=== PATIENT | female | born 1950 | race Caucasian/White ===

== ENCOUNTER → 2016-12-03 | Outpatient (CLI) | payer OTHER ==
--- NOTE | 2016-12-03 13:36 | NM ---
Nuclear Medicine Whole Body Bone Scan Clinical History: 66-year-old female with a history of metastatic breast cancer. Assess response to t herapy. The patient has received both radiation therapy and chemotherapy. Radiopharmaceutical: 20.1 mCi of IV technetium 99m MDP. Technique: After the uncomplicated intravenous administration of the radiopharmaceutical, anterior an d posterior planar images of the axial and appendicular skeleton were obtained. Comparison Studies: Bone scan, dated September 05, 2016, and April 17, 2016. Findings: At the level of the calvarium, there was [id number]-[id number]-left-sided frontal convex-edged uptake, which is stable in distribution although perhaps slightly less intense. Additionally, previo usly seen scattered foci of increased activity in the right and left scapulae and rib cage have dimin ished in intensity. A dominant lesion seen along the right anterior mid rib cage persists, although i s slightly less intense There has also been slight interval decrease in the degree of uptake noted in the thoracic spine. There is some persistent abnormal uptake seen in the posterior upper pelvis and sacrum and involving the proximal femora, left greater than right. A subtle lesion seen in the distal right humeral diaphysis is less conspicuous. There is some degenerative-type uptake associated with the medial aspects of the knee, as well as in the mid and hindfeet. Bilateral renal activity and ni t urinary bladder activity are noted. There are no new foci of metastatic disease. Impression: The degree of osseous metastatic disease is less radiotracer intense, compared to 2015 (consistent with a partial response, and there is no new evidence of metastatic disease.
== END ==
LOC: FIMAGING 08:59
PROVIDERS: ATTEND Internal Medicine Hematology & Oncology
DX: C50.919 Malignant neoplasm of unspecified site of unspecified female breast (principal); C79.51 Secondary malignant neoplasm of bone
CPT/HCPCS: 78306; A9503

== ENCOUNTER → 2017-03-05 | Outpatient (CLI) | payer OTHER | LOC: FIMAGING 09:03 | PROVIDERS: ATTEND Nurse Practitioner | DX: Z85.3 Personal history of malignant neoplasm of breast (principal); C79.51 Secondary malignant neoplasm of bone | CPT/HCPCS: 78306; A9503 ==

== ENCOUNTER → 2017-07-03 | Outpatient (CLI) | payer OTHER | LOC: FIMAGING 08:51 | PROVIDERS: ATTEND Internal Medicine Hematology & Oncology | DX: C79.51 Secondary malignant neoplasm of bone (principal); C50.411 Malignant neoplasm of upper-outer quadrant of right female breast | CPT/HCPCS: 78306; A9503 ==

== ENCOUNTER → 2017-09-22 | Outpatient (CLI) | payer OTHER | LOC: FIMAGING 10:37 | PROVIDERS: ATTEND Internal Medicine Hematology & Oncology | DX: C50.411 Malignant neoplasm of upper-outer quadrant of right female breast (principal) | CPT/HCPCS: 78306; A9503 ==

== ENCOUNTER → 2017-12-30 | Outpatient (CLI) | payer OTHER | LOC: FIMAGING 09:24 | PROVIDERS: ATTEND Nurse Practitioner | DX: R93.7 Abnormal findings on diagnostic imaging of other parts of musculoskeletal system (principal); C50.919 Malignant neoplasm of unspecified site of unspecified female breast | CPT/HCPCS: 78306; A9503 ==

== ENCOUNTER → 2018-03-17 | Outpatient (CLI) | payer OTHER | LOC: FIMAGING 09:10 | PROVIDERS: ATTEND Internal Medicine Hematology & Oncology | DX: M89.9 Disorder of bone, unspecified (principal); C50.411 Malignant neoplasm of upper-outer quadrant of right female breast | CPT/HCPCS: 78306; A9503 ==

== ENCOUNTER → 2018-06-25 | Outpatient (CLI) | payer OTHER | LOC: FIMAGING 09:29 | PROVIDERS: ATTEND Nurse Practitioner | PROC: CP1Z1ZZ Planar Nuclear Medicine Imaging of Musculoskeletal System, All using Technetium 99m (Tc-99m) (ICD-10-PCS; principal; 2018-06-25) | DX: C50.411 Malignant neoplasm of upper-outer quadrant of right female breast (principal); C79.51 Secondary malignant neoplasm of bone | CPT/HCPCS: 78306; A9503 ==

== ENCOUNTER → 2018-09-03 | Outpatient (CLI) | payer OTHER | LOC: FIMAGING 08:46 | PROVIDERS: ATTEND Nurse Practitioner | DX: C50.411 Malignant neoplasm of upper-outer quadrant of right female breast (principal); C79.51 Secondary malignant neoplasm of bone | CPT/HCPCS: 78306; A9503 ==

== ENCOUNTER → 2018-11-18 | Outpatient (CLI) | payer OTHER ==
[~2018-11-18] MED LIST: GADOBUTROL 10 ML VIAL IVP ONE
== END ==
LOC: FIMAGING 07:58
PROVIDERS: ATTEND Internal Medicine Hematology & Oncology
DX: C50.411 Malignant neoplasm of upper-outer quadrant of right female breast (principal); C79.51 Secondary malignant neoplasm of bone; R93.0 Abnormal findings on diagnostic imaging of skull and head, not elsewhere classified
CPT/HCPCS: 70553; A9585; J1642

== ENCOUNTER 2019-03-04 15:10 | Inpatient (IN) | payer OTHER ==
[2019-03-04] MEDS ORDERED: NS 1,000 ML IV ONE (15:48)
--- NOTE | 2019-03-04 15:50 | EDPHY ---
H & P Time Seen by Provider: 03/04/19 15:37 HPI/ROS: CHIEF COMPLAINT: Weakness lightheaded HISTORY OF PRESENT ILLNESS: History of breast cancer and decreased energy since last August with decreased oral intake. Was at her oncologist Dr. Godfrey is office today for IV fluids because she has not been able to eat or drink, related that she was seeing flashing lights while standing yesterday and felt lightheaded dizzy like she was going to pass out had black stools for the past 5 days. No known previous ulcer, is on steroids for having whole brain radiation, no nonsteroidals. Weakness and lightheaded is pretty severe. Worse standing up. Not better or worse with anything. Not associated with chest pain or shortness of breath. REVIEW OF SYSTEMS: Eye: HPI ENT: no sore throat Cardiac: no chest pain or syncope Pulmonary: no cough or SOB Abdomen: Black stools but no vomiting or abdominal pain Musculoskeletal: no back pain Skin: no rash Neuro: no headache Constitutional: no fever : no urinary symptoms A comprehensive 10 point review of systems is otherwise negative aside from elements mentioned in the history of present illness. PAST MEDICAL HISTORY: Includes thyroid surgery, hysterectomy, breast cancer Social history: Here with daughter. General Appearance: Alert and conversant, cooperative. Eyes: No scleral icterus. ENT, Mouth: Slightly dry mucous membranes. Respiratory: Normal respiratory effort, breath sounds equal, lungs are clear to auscultation. Cardiovascular: Regular rate and rhythm. Gastrointestinal: Abdomen is soft and non tender. Rectal exam shows melena. Neurological: Alert, face symmetric, normal motor and sensory in extremities. Skin: Warm and dry, no rashes. Musculoskeletal: No peripheral edema. Psychiatric: Not agitated. Emergency Department course/MDM: Likely upper GI bleed. Plan for IV PPI, IV fluids with blood pressure 74 systolic, type and screen, admission for EGD. 1700: Blood pressure 84 up from 74 after fluids, hematocrit down to 27 from 30. 1710: Larry a to admit. 1730: additional IV fluids, recheck hematocrit. Discussed with Dr. Allison FRY, will consult. 175: Hematocrit 22 on 2nd draw, packed red blood cell transfusion ordered. Smoking Status: Never smoked Constitutional: Initial Vital Signs Temperature (C) 36.5 C 03/04/19 15:20 Heart Rate 98 05/02/19 15:20 Respiratory Rate 18 03/04/19 15:20 Blood Pressure 74/55 L 03/04/19 15:20 O2 Sat (%) 98 03/04/19 15:20 O2 Delivery Mode Room Air Allergies/Adverse Reactions: Penicillins Allergy (Verified 03/04/19 15:17) Home Medications: Medication Instructions Recorded Acetaminophen [Tylenol 325mg (*)] 650 mg PO BID PRN 03/13/16 Ondansetron Odt [Zofran Odt 4 mg 4 mg PO Q4 PRN #30 tab 03/21/16 (*)] Dexamethasone [Decadron 4 MG (*)] 4 mg PO BID 03/04/19 Famotidine [Pepcid 20 MG (*)] 20 mg PO DAILY 03/04/19 Nystatin 5 ml PO TID 03/04/19 Omeprazole 20 mg PO DAILY 03/04/19 Medical Decision Making - Diagnostics EKG Interpretation: 12-lead EKG interpreted by me; official reading is in computer system. My interpretation is sinus rhythm with lower extremity voltage rate 74 no ischemic changes. Differential Diagnosis: Differential for weakness considered including but not limited to metabolic abnormality, anemia, dehydration, PIANO MOVER problem. Critical Care Time: Critical care time spent by me, Dr. Clayton, exclusively with the care of this patient was 30 minutes, exclusive of PA or W[employer]DRO[employer] SPECIALIST time and exclusive of separate procedures. The organ system at risk was gastrointestinal, hematologic and I ordered multiple diagnostics, IV ppi, hospitalist admission and specialist consultation to stabilize the patient and prevent worsening of the patient's condition. - Data Points Laboratory Results: Laboratory Results 03/04/19 16:33 03/04/19 16:33 03/04/19 03/04/19 03/04/19 17:39 16:33 16:33 WBC RBC Hgb POC Hgb 7.5 gm/dL L gm/dL (12.6-16.3) Hct POC Hct 22 % L % (38-47) MCV MCH MCHC RDW Plt Count MPV Neut % (Auto) Lymph % (Auto) Valley % (Auto) Eos % (Auto) Baso % (Auto) Nucleat RBC Rel Count Absolute Neuts (auto) Absolute Lymphs (auto) Absolute Monos (auto) Absolute Eos (auto) Absolute Basos (auto) Absolute Nucleated RBC Immature Gran % Seg Neutrophils % Band Neutrophils % Lymphocytes % Monocytes % Eosinophils % Basophils % Metamyelocytes % Myelocytes % Promyelocytes % Blast Cells % Immature Gran # Absolute Seg Neuts Absolute Band Neuts Absolute Lymphocytes Absolute Monocytes Absolute Eosinophils Absolute Basophils Absolute Metamyelocyte Absolute Myelocytes Absolute Promyelocytes Absolute Plasma Cells Nucleated RBCs RBC/WBC/PLT Morphology Absolute Blast Cells Plasma Cells % Platelet Estimate PT INR APTT POC Sodium 136 mEq/L mEq/L (135-145) Sodium 128 mEq/L L mEq/L (135-145) POC Potassium 3.0 mEq/L L mEq/L (3.3-5.0) Potassium 3.2 mEq/L L mEq/L (3.5-5.2) POC Chloride 101 mEq/L mEq/L (97-110) Chloride 101 mEq/L mEq/L (97-110) Carbon Dioxide 24 mEq/l mEq/l (22-31) POC Total CO2 21 mEq/L L mEq/L (22-31) Anion Gap 3 mEq/L L mEq/L (6-14) POC BUN 8 mg/dL mg/dL (7-23) BUN 12 mg/dL mg/dL (7-23) Creatinine 0.4 mg/dL L mg/dL (0.6-1.0) POC Creatinine 0.4 mg/dL L mg/dL (0.6-1.0) Estimated GFR > 60 Glucose 81 mg/dL mg/dL (70-100) POC Glucose 79 mg/dL mg/dL (70-100) Calcium 6.9 mg/dL L mg/dL (8.5-10.4) Stool Occult Bld Scrn Patient ABO/Rh A POSITIVE Antibody Screen NEGATIVE Crossmatch IS Only See Detail 03/04/19 03/04/19 03/04/19 16:33 16:33 15:52 WBC 3.54 10^3/uL L 10^3/uL (3.80-9.50) RBC 2.98 10^6/uL L 10^6/uL (4.18-5.33) Hgb 9.1 g/dL L g/dL (12.6-16.3) POC Hgb Hct 27.5 % L % (38.0-47.0) POC Hct MCV 92.3 fL fL (81.5-99.8) MCH 30.5 pg pg (27.9-34.1) MCHC 33.1 g/dL g/dL (32.4-36.7) RDW 16.3 % H % (11.5-15.2) Plt Count 97 10^3/uL L 10^3/uL (150-400) MPV 9.7 fL fL (8.7-11.7) Neut % (Auto) Not Reported Lymph % (Auto) Not Reported Valley % (Auto) Not Reported Eos % (Auto) Not Reported Baso % (Auto) Not Reported Nucleat RBC Rel Count Not Reported Absolute Neuts (auto) Not Reported Absolute Lymphs (auto) Not Reported Absolute Monos (auto) Not Reported Absolute Eos (auto) Not Reported Absolute Basos (auto) Not Reported Absolute Nucleated RBC Not Reported Immature Gran % Not Reported Seg Neutrophils % 89.0 % % Band Neutrophils % 3.0 % % Lymphocytes % 5.0 % % Monocytes % 1.0 % % Eosinophils % 0.0 % % Basophils % 0.0 % % Metamyelocytes % 1.0 % % Myelocytes % 1.0 % % Promyelocytes % 0.0 % % Blast Cells % 0.0 % % Immature Gran # Not Reported Absolute Seg Neuts 3.15 10^3/uL 10^3/uL (1.70-6.50) Absolute Band Neuts 0.11 10^3/uL 10^3/uL (0.00-0.70) Absolute Lymphocytes 0.18 10^3/uL L 10^3/uL (1.00-3.00) Absolute Monocytes 0.04 10^3/uL L 10^3/uL (0.30-0.80) Absolute Eosinophils 0.00 10^3/uL L 10^3/uL (0.03-0.40) Absolute Basophils 0.00 10^3/uL L 10^3/uL (0.02-0.10) Absolute Metamyelocyte 0.04 10^3/mL H 10^3/mL (0.00-0.00) Absolute Myelocytes 0.04 10^3/mL H 10^3/mL (0.00-0.00) Absolute Promyelocytes 0.00 10^3/uL 10^3/uL (0.00-0.00) Absolute Plasma Cells 0.00 10^3/uL 10^3/uL (0.00-0.00) Nucleated RBCs 0 /100 WBC /100 WBC (0-0) RBC/WBC/PLT Morphology NORMAL (NORMAL) Absolute Blast Cells 0.00 10^3/uL 10^3/uL (0.00-0.00) Plasma Cells % 0.0 % % Platelet Estimate DECREASED L (ADEQ) PT 14.3 SEC SEC (12.0-15.0) INR 1.16 (0.83-1.16) APTT 29.8 SEC SEC (23.0-38.0) POC Sodium Sodium POC Potassium Potassium POC Chloride Chloride Carbon Dioxide POC Total CO2 Anion Gap POC BUN BUN Creatinine POC Creatinine Estimated GFR Glucose POC Glucose Calcium Stool Occult Bld Scrn POSITIVE H (NEGATIVE) Patient ABO/Rh Antibody Screen Crossmatch IS Only Medications Given: Discontinued Medications Sodium Chloride (Ns) 1,000 mls @ 0 mls/hr IV EDNOW ONE; Wide Open PRN Reason: Protocol Stop: 03/04/19 15:49 Last Admin: 03/04/19 17:15 Dose: 1,000 mls Pantoprazole Sodium (Protonix) 80 mg IVP EDNOW ONE Stop: 03/04/19 16:01 Last Admin: 03/04/19 17:15 Dose: 80 mg Point of Care Test Results: Chemistry 03/04/19 17:39 POC Sodium 136 mEq/L mEq/L (135-145) POC Potassium 3.0 mEq/L L mEq/L (3.3-5.0) POC Chloride 101 mEq/L mEq/L (97-110) POC Total CO2 21 mEq/L L mEq/L (22-31) POC BUN 8 mg/dL mg/dL (7-23) POC Creatinine 0.4 mg/dL L mg/dL (0.6-1.0) POC Glucose 79 mg/dL mg/dL (70-100) ISTAT H&H 03/04/19 17:39 POC Hgb 7.5 gm/dL L gm/dL (12.6-16.3) POC Hct 22 % L % (38-47) Departure - Departure Disposition: [facility] Inpatient Acute Clinical Impression: Upper GI bleeding Condition: Serious Referrals: GRISELDA SORENSEN [Other] - As per Instructions
[2019-03-04] MEDS ORDERED: PANTOPRAZOLE SODIUM 40 MG VIAL IVP ONE (16:00)
[2019-03-04] MEDS ORDERED: LIDOCAINE/PRILOCAINE 1 EACH CRTUBE TP ONE (16:00)
--- NOTE | 2019-03-04 16:52 | CPEKG ---
Test Reason : OPEN Blood Pressure : / mmHG Vent. Rate : 074 BPM Atrial Rate : 074 BPM P-R Int : 168 ms QRS Dur : 088 ms QT Int : 419 ms P-R-T Axes : 058 004 058 degrees QTc Int : 465 ms Sinus rhythm Low voltage, extremity leads Confirmed by Lam Clayton ([id number]) on 03/04/2019 4:51:20 PM Referred By: Lam Clayton Confirmed By:Lam Clayton
[2019-03-04 17:01] LABS: PLATELET COUNT 97 10^3/uL (150-400)
[2019-03-04] MEDS ORDERED: PANTOPRAZOLE SODIUM 40 MG VIAL ONE (17:09)
[2019-03-04 17:24] LABS: INR 1.16 (0.83-1.16); PROTIME(PATIENT) 14.3 SEC (12.0-15.0)
[2019-03-04] MEDS ORDERED: ACETAMINOPHEN 325 MG TAB PO PRN (18:17)
[2019-03-04] MEDS ORDERED: ONDANSETRON DISINTEGRATING 4 MG TAB PO PRN (18:19)
[2019-03-04] MEDS ORDERED: ONDANSETRON 4 MG/2 ML VIAL IVP PRN (18:19)
--- NOTE | 2019-03-04 18:29 | PDCONSULT ---
Polygraph Operator Note: CHIEF COMPLAINT: Weakness lightheaded HISTORY OF PRESENT ILLNESS: 68 yo female with metastatic breast cancer p/w symptomatic anemia. The pt was sent from the Oncology office for anemia w/u and mgmt. She was at her oncologist Dr. Godfrey is office today for IV fluids because she has not been able to eat or drink. She has had melena for 5 ays. She feels weak. BP in the ER initially was in the systolic 50's. She is not tachycardic. In the ER BP has responded slightly and is now in the 80's systolic. She reports that her BP has been running in the 80s systolic for several weeks. She is not on platelet inhibitor, NSAID, or other AC. She has been on steroids for several weeks for whole brain radiation She has no hx of GIB In the ER she is being transfused 1 unit GI has been consulted She denies cp, sob, n/v, or other. PAST MEDICAL HISTORY: Includes thyroid surgery, hysterectomy, breast cancer Social history: Here with daughter. non smoker, no ETOH FmHx: non contributory Exam: vs: hypotension NAD MM DRY PEERL, EOMI RRR, NO EDEMA CTA B, NORMAL WORK OF BREATHING S/NT/ND SKIN WARM NOT ANXIOUS AAOX3 HOME MEDS: REVIEWED Labs: reviewed A/P #UGIB #ABLA #Hypotension #Metastatic Breast cancer, on chemotherapy, mets to brain #Chronic Steroid use: unclear duration, at least several weeks #Decreased PO #FTT Plan: The pt has symptomatic hypotension. She is not tachy. Suspect acute on chronic hypotension. Etiology is multifactorial but current drop is likely due to ABLA from UGIB Discussed with ER, transfusing 1 unit now. She may need additional pending respons She has already received 2 L of NS in the ER. Keep NPO. Will cont Fluids I have not stopped her steroids as I suspect some component of adrenal insufficiency. I have not increased her dose either PPI GI to see, consulted by the ER total critical care time is 65 minutes
[2019-03-04] MEDS ORDERED: NS 1,000 ML IV SCH (18:30)
[2019-03-04] MEDS: NYSTATIN SUSP 500000 UNIT/5 ML UD LIQ PO SCH (21:46)
[2019-03-04] MEDS: DEXAMETHASONE 4 MG TAB PO SCH (21:46)
[2019-03-04] MEDS: NS W/ 20 KCl/L 1,000 ML IV SCH (21:51)
[2019-03-04] MEDS: PANTOPRAZOLE SODIUM 40 MG VIAL IVP SCH (23:04)
[2019-03-05 06:07] LABS: PLATELET COUNT 83 10^3/uL (150-400)
[2019-03-05] MEDS: PANTOPRAZOLE SODIUM 40 MG VIAL IVP SCH ×4 (06:28→22:22)
--- NOTE | 2019-03-05 08:16 | HOSPPROG ---
Hospitalist Progress Note Assessment/Plan: DIAGNOSES: # UGIB -hemoglobin stable, blood pressure back to her recent baseline # ABLA # Hypotension due to GI bleed (baseline systolic mid 80s for the last 8 months, was previously higher) # Early Satiety/constipation with profound weight loss and severe protein calorie malnutrition -describes greater than 100 lb weight loss in 2 years # thrombocytopenia, suspect due to cancer treatment # Metastatic Breast cancer -known brain Mets; recent PET scan "looked good" -on Taxol # Chronic Steroid use: unclear duration, at least several weeks -his receiving stress dose steroid at this time # FTT PLANS: * await gastroenterology consultation * EGD and colonoscopy indicated (currently NPO for that) * Will attempt to get formal results of her recent PET scan and other imaging * Proton pump inhibitor * No anticoagulants at this time with her bleeding; TEDs and SCDs * Nutrition supplementation * Will check iron levels and flow give iron supplementation Seen by me on hospitalist rounds as well as multidisciplinary rounds Will review with Gastroenterology as they arrive today Reviewed with Dr. Milian SUBJECTIVE: Feels weak and tired Denies pain or nausea Describes 8 months of severe early satiety and bloating, constipation Also describes greater than 100 lb weight loss OBJECTIVE Vitals reviewed: Stable vital signs at present (her current blood pressures are her baseline since last August) Test Architect, my review: Sinus Exam: alert oriented skin warm dry color ok resps not labored lungs clear BSs heart regular abd soft nondistended nontender, bowel sounds present limbs warm, no edema iv site ok Lab data: Hemoglobin stable 9.7 Platelets still slightly low but stable ANC 2400 Bilirubin and alk-phos stable, normal AST ALT Sodium stable, good renal function though suspect her low creatinine reflects malnutrition Objective: Vital Signs Temp Pulse Resp BP Pulse Ox 36.9 C 76 16 88/63 L 98 03/05/19 07:54 03/05/19 07:54 03/05/19 07:54 03/05/19 07:54 03/05/19 07:54 Laboratory Results 03/05/19 06:01 03/05/19 06:01 03/04/19 03/05/19 03/06/19 06:59 06:59 06:59 Intake Total 2689 Balance 2689 PT 14.3 SEC (12.0-15.0) 03/04/19 16:33 INR 1.16 (0.83-1.16) 03/04/19 16:33 - Time Spent With Patient Time Spent with Patient: greater than 35 minutes Time Spent with Patient: Greater than 35 minutes spent on this patients care, greater than 50% of time spent counseling, educating, and coordinating care regarding the above mentioned plan. ICD10 Worksheet Patient Problems: Problems Problem Status Onset Upper GI bleeding Acute Breast cancer Acute
[2019-03-05] MEDS: HYDROCORTISONE 100 MG/2 ML VIAL IVP SCH ×2 (08:45→16:06)
[2019-03-05] MEDS: NYSTATIN SUSP 500000 UNIT/5 ML UD LIQ PO SCH ×3 (08:45→22:22)
[2019-03-05] MEDS: NS W/ 20 KCl/L 1,000 ML IV SCH ×2 (08:46→22:31)
[2019-03-05] MEDS: FAMOTIDINE 20 MG TAB PO SCH (09:02)
--- NOTE | 2019-03-05 13:06 | PDMN ---
Medical Necessity Medical necessity: MCG: M180 GIB,upper A-2 days; Admission is indicated for 1 or more of the following: -Significant active comorbid disease. High- risk low platelet count ( 97,83). 68yoF with met. Br. Ca on Chemo with mets to brain, - sent by oncologist for symptomatic anemia, pt unable to eat/drink , Melena X 5 days, hypotensive, transfused 1 unit in ED, GI consult pend. anticipate > 2 MN ongoing med nec care- further monitoring, eval and tx of ABLA , UGIB, hypotension,
--- NOTE | 2019-03-05 13:09 | PDANEPAE ---
ANE History of Present Illness black/tarry stool here for EGD ANE Past Medical History - Cardiovascular History Hx Hypertension: No Hx Arrhythmias: No Hx Chest Pain: No Hx Coronary Artery / Peripheral Vascular Disease: No Hx CHF / Valvular Disease: No Hx Palpitations: No - Pulmonary History Hx COPD: No Hx Asthma/Reactive Airway Disease: No Hx Recent Upper Respiratory Infection: No Hx Oxygen in Use at Home: No Hx Sleep Apnea: No Sleep Apnea Screening Result - Last Documented: Negative - Neurologic History Hx Cerebrovascular Accident: No Hx Seizures: No Hx Dementia: No - Endocrine History Hx Diabetes: No Endocrine History Comment: PARTIAL THYROIDECTOMY - Renal History Hx Renal Disorders: No - Liver History Hx Hepatic Disorders: No - Neurological & Psychiatric Hx Hx Neurological and Psychiatric Disorders: No - Cancer History Hx Cancer: Yes Cancer History Comment: BREAST CANCER - Congenital Disorder History Hx Congenital Disorders: No - GI History Hx Gastrointestinal Disorders: Yes Gastrointestinal History Comment: CONSTIPATION - Other Health History Other Health History: NONE - Chronic Pain History Chronic Pain: Yes (RIGHT KNEE PAIN, BAD BACK) - Surgical History Prior Surgeries: BREAST BIOPSIES. TONSILLECTOMY. THYROIDECTOMY ON LEFT SIDE. GANGLION CYST REMOVED FROM LEFT HAND. TUBAL LIGATION. HYSTERECTOMY ANE Review of Systems Review of Systems: - Exercise capacity Exercise capacity: <4 METS ANE Patient History - Allergies Allergies/Adverse Reactions: Penicillins Allergy (Verified 03/04/19 15:17) - Home Medications Home Medications: Acetaminophen [Tylenol 325mg (*)] 650 mg PO BID PRN 03/13/16 [Last Taken 08:00] Dexamethasone [Decadron 4 MG (*)] 4 mg PO BID 03/04/19 [Last Taken Unknown] Famotidine [Pepcid 20 MG (*)] 20 mg PO DAILY 03/04/19 [Last Taken Unknown] Nystatin 5 ml PO TID 03/04/19 [Last Taken Unknown] Omeprazole 20 mg PO DAILY 03/04/19 [Last Taken Unknown] - NPO status NPO Status: no food or drink >8 hours NPO Since - Liquids (Date): 03/05/19 NPO Since - Liquids (Time): 08:00 NPO Since - Solids (Date): 03/03/19 NPO Since - Solids (Time): 12:00 - Anes Hx Anes Hx: no prior problems - Smoking Hx Smoking Status: Never smoked - Alcohol Use Alcohol Use: None - Family Anes Hx Family Hx Anesthesia Complications: AUNT STOPPED BREATHING WITH ANESTHESIA ANE Labs/Vital Signs - Labs Result Diagrams: 03/05/19 06:01 03/05/19 06:01 - Vital Signs Blood Pressure: 83/59 Heart Rate: 67 Respiratory Rate: 12 O2 Sat (%): 96 Height: 167.64 cm Weight: 62.142 kg ANE Physical Exam - Airway Neck exam: FROM Mallampati Score: Class 2 Mouth exam: poor dentition Mouth image: 1 - missing 2 - missing - Pulmonary Pulmonary: no respiratory distress, clear to auscultation - Cardiovascular Cardiovascular: regular rate and rhythym, no murmur, rub, or gallop - ASA Status ASA Status: III ANE Anesthesia Plan Anesthesia Plan: GA with mask Total IV Anesthesia: Yes
[2019-03-05] MEDS ORDERED: NALOXONE HCL 0.4 MG/ML INJ IVP PRN (13:41)
--- NOTE | 2019-03-05 13:45 | POSTANESTH ---
Post Anesthetic Evaluation Cardiovascular Status: Normal, Stable, Similar to Pre-Op Cond Respiratory Status: Normal, Stable, Similar to Pre-op Cond. Level of Consciousness/Mental Status: Mildly Sleepy, Arousable Pain Control: Adequate, Prn Tx Ordered Nausea/Vomiting Control: Adequate, Prn Tx Ordered Complications Possibly Related to Anesthesia: None Noted
--- NOTE | 2019-03-05 14:14 | GCON ---
[f rep st] CONSULTATION DATE OF CONSULTATION: 03/05/2019 REFERRING PHYSICIAN: Maicol Juarez MD REASON FOR CONSULTATION: Melena. CHIEF COMPLAINT: Weakness. HISTORY OF PRESENT ILLNESS: The patient is a 68-year-old female with a history of metastatic breast cancer who presents to [facility] with complaints of feeling weak, lightheaded, as well as melenic stools. The patient states for the last 6 days she has had black and tarry stools. She has not had a bowel movement each day. She felt very weak as well as lightheaded. Due to her complaints, she went to Oncology and found to be anemic and came to the hospital for further evaluation. In the emergency room, her systolic pressure which in the 50s. She has had a queasy stomach with early satiety and nausea. She states that she eats only a few bites and she does feel very full. She also has complaints of nausea. She has had crampy abdominal pain throughout her whole belly, which is worsened by oral intake. She denies any alleviating factors. She has been having radiation treatment for metastatic lesions in her brain. She denies NSAID use. She has never had a prior EGD or colonoscopy. I am being asked by Dr. Juarez to evaluate the patient in consultation regarding her melenic stools. PAST MEDICAL HISTORY: Metastatic breast cancer. PAST SURGICAL HISTORY: 1. Thyroid surgery. 2. Hysterectomy. 3. Tonsillectomy. ALLERGIES: Penicillin. MEDICATIONS: Dexamethasone, docusate, duloxetine, famotidine, lidocaine, omeprazole, Zometa. FAMILY HISTORY: Lung cancer, breast cancer. SOCIAL HISTORY: Former smoker. No significant alcohol use. REVIEW OF SYSTEMS: A 14 point comprehensive review of systems was asked. Pertinent positives and negatives per HPI. PHYSICAL EXAM: VITALS: Temperature 98.2, blood pressure 122/72, pulse 73, respirations 16. GENERAL: Alert and oriented x3, in no distress. HEENT: Moist mucosa. NECK: No JVD. CARDIOVASCULAR: Regular rate and rhythm. Positive S1, S2. No gallops appreciated. LUNGS: Clear to auscultation bilaterally. No wheezes, rales or rhonchi. ABDOMEN: Soft, nontender, nondistended. Positive bowel sounds. No guarding or rebound. EXTREMITIES: No edema. NEUROLOGIC: Cranial nerves 2 through 12 grossly intact. PSYCH: Normal affect. ASSESSMENT AND PLAN: 1. Melenic stools- with post hemorrhagic anemia. Recommend to proceed with upper endoscopy. The risks, benefits, and alternatives of the procedure were explained in detail to the patient. The risk of infection, bleeding, perforation, and sedation were discussed. All questions were answered. Informed consent was obtained. 2. History of metastatic breast cancer. /[id number]/MODL MTDD
--- NOTE | 2019-03-05 14:32 | ASMTCMCOM ---
CM Note CM Note Notes: CM met with daughter. Pt was away out of room for testing. Daughter reports that pt lives with her at home. is out of town care taking for his blind/deaf uncle. Therapy's recommend HHC. CM will follow up when pt is back in room to provide options for HHC. Plan: [facility] Date Signed: 03/05/2019 02:31 PM Electronically Signed By:Priyanka Snyder
--- NOTE | 2019-03-05 14:34 | GCON ---
[f rep st] CONSULTATION CRITICAL-CARE CONSULTATION DATE OF CONSULTATION: 03/05/2019 HISTORY OF PRESENT ILLNESS: The patient is a 68-year-old female with a history of metastatic breast cancer who was admitted yesterday with near syncope, ongoing severe weight loss, and poor oral intake , but more significantly melena for the past 5 days. She was sent to the [facility] department [facility], was found have a blood pressure 74/55 with hematocrit of 27, down from 37 not that lo ng ago. In any case, she was thought to be having GI bleeding. She was given IV fluids, 1 unit of b lood, admitted to the step-down unit for ongoing observation. She denied any nausea, vomiting, hemat emesis, or bright red blood. She was placed on dexamethasone on 01/25/2019, for symptomatic nausea a t that time, as well as Zofran. She has not had any peptic ulcer disease in the past. She was previ ously treated with Pepcid and given a prescription for omeprazole, but only recently just filled that . In terms of her breast cancer, she was diagnosed in 2015, underwent bilateral modified radical mastec tomies, has been treated with Taxol ever since. 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 She may have had a recent PET-CT that was showing no evidence of disease, but alvaro t is unclear to me at this time. PAST MEDICAL HISTORY: Includes: 1. The breast cancer as described. 2. Chronic steroids. 3. Depression. PAST SURGICAL HISTORY: None. SOCIAL HISTORY: She is a nonsmoker. FAMILY HISTORY: Noncontributory. MEDICATIONS: At this time, include Tylenol, Decadron, Pepcid, Narcan, nystatin, Zofran, Protonix, no rmal saline. PHYSICAL EXAM: VITAL SIGNS: At time of my evaluation, she had a blood pressure of 88/63, heart rate 76, respiratory rate 16, oxygen saturation 98% on room air. GENERAL: She was a pleasant woman who appeared to be older than her stated age, but was in no apparent distress, and able to speak in full sentences without using accessory muscles for breathing. HEENT: Pupils are equally round and reacti ve to light nonicteric and noninjected. Mucous membranes moist without erythema or exudate. NECK: Supple without adenopathy or jugular vein distention. LUNGS: Breath sounds were clear to auscultati on bilaterally without wheeze or rales. HEART: Regular rate and rhythm without murmurs, rubs, winters ps. ABDOMEN: Soft, nontender, nondistended without hepatosplenomegaly. EXTREMITIES: Show no clubbi ng, cyanosis, or edema. NEUROLOGIC: Nonfocal, including cranial nerves, deep tendon reflexes. SKIN : Warm and dry without evidence of rash. OBJECTIVE DATA: Includes a white count on admission of 3.5, hemoglobin 7.5, hematocrit 27, platelets of 97. INR is 1.16. Sodium is 128, potassium 3.2, chloride 101, bicarb 24, anion gap 3, BUN 12, cr eatinine 0.4, calcium 6.9. Transaminases were normal, alkaline phosphatase 168, total bilirubin 1.9, albumin only 2.2. ASSESSMENT/PLAN: 1. Possible gastrointestinal bleed given her history and recent steroid dosing. She is going to get an EGD later this morning and remains n.p.o. for this. There is no signs of active bleeding at this time, but she has a proton pump inhibitor in place, as well as serial hemoglobin and hematocrit. 2. Hypotension. This easily could be due to possible gastrointestinal bleed, but also could be from a relative adrenal insufficiency given her stress. She is on dexamethasone. We changed her to a hy drocortisone and will monitor her blood pressure appropriately. I do not see any evidence of sepsis, acute coronary syndromes at this time. 3. Pancytopenia. It is unclear to me when her last Taxol dose was and that could all be related to that given her drop in white count as well as platelets. There is no active bleeding right now, so I do not feel that transfusion of platelets is indicated. If in fact this is a Taxol related problem, it should recover without any intervention. We will watch closely. 4. Elevated alkaline phosphatase. This is likely related to her known widespread bony metastatic di sease. /[id number]/MODL
--- NOTE | 2019-03-05 14:43 | GIREPORT ---
[facility] Surgical Services - Endoscopy Department Patient Name: Ruth De Luna Procedure Date: 03/05/2019 12:48 PM Patient Type: Inpatient Attending MD/ ER Physician: Ryan Cooper MD Procedure: Upper GI endoscopy Indications: Epigastric abdominal pain, Melena Patient Profile: 68 year old with a history of metastatic breast cancer presents for evaluation of melena/post hemorrhagic anemia/epigastric abdominal pain. Providers: Ryan Cooper MD Medicines: Monitored Anesthesia Care Complications: No immediate complications. Estimated blood loss: Minimal. Description of Procedure: After obtaining informed consent, the endoscope was passed under direct vision. Throughout the procedure, the patient's blood pressure, pulse, and oxygen saturations were monitored continuously. The Endoscope was intro duced through the mouth, and advanced to the second part of duodenum. The [facility] er GI endoscopy was accomplished with ease. The patient tolerated the procedu re well. Findings: The examined esophagus was normal. Three cratered gastric ulcers were found in the gastric body with signf icant nodularity. The largest lesion was 20 mm in largest dimension. Biopsies were taken at the edges of the ulcer base and throughout the stomach. Patchy mildly erythematous mucosa was found in the entire examined stom ach. The examined duodenum was normal. Estimated Blood Loss: Estimated blood loss was minimal. Post Op Diagnosis: - Normal esophagus. - Gastric ulcers. - Erythematous mucosa in the stomach. - Normal examined duodenum. - No specimens collected. - Etiology? Multiple gastric ulcers. She is adamant that she is taking no NSAIDs. Malignant ulcers versus other? No active bleeding or stigmata o f bleed noted. Await biopsy results. Recommend PPI BID and no NSAIDs. Ok to restart diet. Low chance of rebleed. GI will sign off. Thank you for th e consultation! Recommendation: - Return patient to [facility] for ongoing care. - Clear liquid diet. - Await pathology results. - No aspirin, ibuprofen, naproxen, or other non-steroidal anti-inflamma tory drugs. - Use a proton pump inhibitor PO BID. - GI will sign off. -Thank you for allowing us to participate in the care of your patient! Attending Participation: I personally performed the entire procedure. Ryan Cooper MD Ryan Cooper MD 03/05/2019 2:42:15 PM This report has been signed electronicallyRyan Cooper MD Number of Addenda: 0 Note Initiated On: 03/05/2019 12:48 PM [email or web address]
[2019-03-06] MEDS: HYDROCORTISONE 100 MG/2 ML VIAL IVP SCH ×4 (03:14→22:21)
[2019-03-06] MEDS: PANTOPRAZOLE SODIUM 40 MG VIAL IVP SCH ×4 (06:15→22:21)
--- NOTE | 2019-03-06 10:03 | HOSPPROG ---
Hospitalist Progress Note Assessment/Plan: DIAGNOSES: # UGIB -hemoglobin stable, blood pressure back to her recent baseline # ABLA # Hypotension due to GI bleed (baseline systolic mid 80s for the last 8 months, was previously higher) # Early Satiety/constipation with profound weight loss and severe protein calorie malnutrition -describes greater than 100 lb weight loss in 2 years # thrombocytopenia, suspect due to cancer treatment # Metastatic Breast cancer -known brain Mets; recent PET scan "looked good" -on Taxol # Chronic Steroid use: unclear duration, at least several weeks -is receiving stress dose steroid at this time # Gait instability FTT, high fall risk PLANS: * Continue PPI * Attempt regular diet * Hydrocortisone decreased to 50 mg three times daily and then will switch back to usual steroid tomorrow * Await biopsy results * No anticoagulants at this time with her bleeding; TEDs and SCDs * Nutrition supplementation * Will check iron levels and flow give iron supplementation * Continue fall risk precautions, PT and OT * Recheck blood count in a.m. Reviewed with Dr. Milian and Dr. Cooper SUBJECTIVE: Feels weak and tired Did walk with physical therapist, feels unsteady and weak on feet but he was able to walk with some assistance No nausea vomiting or abdominal pain Tolerating clear liquids well Stools now much less melanic in appearance this morning OBJECTIVE Vitals reviewed: Some improvement in blood pressure otherwise stable vital signs no fever Residential [employer], my review: Sinus Exam: alert oriented, looks weak and tired skin warm dry color ok resps not labored lungs clear BSs heart regular abd soft nondistended nontender, bowel sounds present limbs warm, no edema iv site ok Lab data: Iron studies pending Objective: Vital Signs Temp Pulse Resp BP Pulse Ox 36.3 C 66 13 92/62 L 94 03/06/19 08:00 03/06/19 08:00 03/06/19 08:00 03/06/19 08:00 03/06/19 08:00 Laboratory Results 03/05/19 06:01 03/05/19 06:01 03/05/19 03/06/19 03/07/19 06:59 06:59 06:59 Intake Total 2689 2586 Output Total 0 Balance 2689 2586 PT 14.3 SEC (12.0-15.0) 03/04/19 16:33 INR 1.16 (0.83-1.16) 03/04/19 16:33 - Time Spent With Patient Time Spent with Patient: greater than 35 minutes Time Spent with Patient: Greater than 35 minutes spent on this patients care, greater than 50% of time spent counseling, educating, and coordinating care regarding the above mentioned plan. ICD10 Worksheet Patient Problems: Problems Problem Status Onset Upper GI bleeding Acute Breast cancer Acute
[2019-03-06] MEDS: DEXAMETHASONE 4 MG TAB PO SCH ×2 (12:02→21:05)
[2019-03-06] MEDS: NYSTATIN SUSP 500000 UNIT/5 ML UD LIQ PO SCH ×3 (12:02→22:21)
[2019-03-06] MEDS: FAMOTIDINE 20 MG TAB PO SCH (12:02)
--- NOTE | 2019-03-06 12:44 | SOAPPROG ---
SOAP Progress Note Assessment/Plan: Assessment: Plan: 03/06/19 12:39 A/P 1. GI bleed- upper. + melena. EGD with large gastric ulcers. Biopsies taken. Unsure if malignant? Await biopsy results. Low chance of rebleed since clean based ulcers. Recommend PPI BID and ok to advance diet. No NSAIDs. Will follow up on biopsy results. Outpatient f/u in 2-3 weeks. GI will sign off. Please call if needed. Subjective: cc: Follow up GI bleed Had a black BM this am. No c/o of abdominal pain. Objective: Vital Signs Temp Pulse Resp BP Pulse Ox 36.3 C 66 13 92/62 L 94 03/06/19 08:00 03/06/19 08:00 03/06/19 08:00 03/06/19 08:00 03/06/19 08:00 Laboratory Results 03/05/19 06:01 03/05/19 06:01 03/05/19 03/06/19 03/07/19 05:59 05:59 05:59 Intake Total 2689 2586 Output Total 0 Balance 2689 2586 PT 14.3 SEC (12.0-15.0) 03/04/19 16:33 INR 1.16 (0.83-1.16) 03/04/19 16:33 Physical Exam - Physical Exam General Appearance: alert, no apparent distress EENT: No scleral icterus (R), No scleral icterus (L) Respiratory: chest non-tender, lungs clear, normal breath sounds, No decreased breath sounds Cardiac/Chest: regular rate, rhythm, No diastolic murmur, No systolic murmur Abdomen: normal bowel sounds, non-tender, soft, No distended, No guarding Skin: normal color, warm/dry ICD10 Worksheet Patient Problems: Problems Problem Status Onset Upper GI bleeding Acute Breast cancer Acute
--- NOTE | 2019-03-06 12:47 | GCON ---
[f rep st] CONSULTATION Ruth De Luna is a 68-year-old woman with a history of metastatic triple negative breast cancer. She is well known to me from my clinic. She presented in March of 2016 with invasive ductal carcinoma of the right breast. She underwent bilateral mastectomy and sentinel lymph node dissection. She was later found to have extensive blastic lesions throughout the skeleton without evidence of visceral disease. In June 2016, she was started on weekly Taxol with a good result. She continued this therapy up until June 2018 when it was discontinued due to concerns about progressive neuropathy. Several months ago, she began to complain of nausea, vomiting and weight loss. 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 She did not have any other neurological findings aside from the nausea. She received a course of palliative whole-brain radiotherapy which was completed at the end of January. PET-CT scan showed no evidence of progression. She was restarted on her Taxol. She unfortunately continued to have significant GI symptoms. She was placed on dexamethasone 4 mg twice daily as well as numerous antiemetics. On the day of admission, she called our clinic complaining of dizziness as well as melena. We sent her to the emergency department. She was found to have a hemoglobin of 7.5, which was lower than baseline. She received 1 unit of red cells. She had an upper endoscopy performed yesterday by Dr. Cooper. This revealed gastric ulcers with an erythematous mucosa in the stomach. The esophagus and duodenum were normal. Biopsies were performed and the results are pending. She says she is feeling significantly better. PAST MEDICAL HISTORY: 1. 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 CURRENT MEDICATIONS: Include dexamethasone 4 mg p.o. twice daily, Pepcid, Protonix IV. ALLERGIES: Penicillins. FAMILY HISTORY: Noncontributory. SOCIAL HISTORY: She lives with her daughter. REVIEW OF SYSTEMS: Aside from pertinent positives in HPI, a 14-point review of systems is negative. EXAMINATION: VITAL SIGNS: Her temperature was 36.3, blood pressure 92/62, heart rate 66, oxygen saturation 94% on room air. GENERAL: She is chronically ill appearing, though in no acute distress. EENT: Sclerae anicteric. Oropharynx clear. NECK: Supple without lymphadenopathy. LUNGS: Clear to auscultation bilaterally. CARDIAC: Regular rate and rhythm. No murmurs, gallops, rubs. ABDOMEN: Normoactive bowel sounds. Nontender. EXTREMITIES: No edema. 2+ pulses. NEUROLOGIC: Alert and oriented x3. LABORATORY DATA: White count 2.62, hemoglobin 9.1, platelets of 83. Sodium 134 , potassium 3.6, chloride 105, bicarb 22, BUN of 8, creatinine 0.4, total bilirubin 1.8, alkaline phosphatase 163, albumin 2.2. IMPRESSION: This is a 68-year-old woman with triple negative breast cancer metastatic to bone. She was recently treated for leptomeningeal disease noted on MRI. She presented with melena and some anemia, though this appears to have stabilized. Endoscopy revealed multiple gastric ulcers. Biopsies are pending. The etiology of these ulcers is not clear and I am very curious to see the biopsy results. Certainly, she could have metastatic deposits from the breast cancer, which would of course explain her persistent GI symptoms and weight loss over the past several months. It is also possibly due to a non bleeding cause, as that would be a fairly unusual location for metastatic breast cancer. There is no evidence of systemic progression on her other imaging. RECOMMENDATIONS: 1. Continue H2 blockers and proton pump inhibitor. 2. Avoid all NSAIDs. 3. Follow hemoglobin. If her iron stores are low, she may benefit from intravenous iron. 4. We will follow up on the results of the biopsy. 5. Her next chemotherapy is due on March 16. If the biopsy shows evidence of cancer in the stomach, we may need to consider changing her therapy. Thank you for this consultation. I will continue to follow Mrs. De Luna with you closely while she is in the hospital. /[id number]/MODL MTDD
--- NOTE | 2019-03-06 17:05 | PDINTPN ---
[employer] Floorperson Progress Note Assessment/Plan: 68 F with history of breast cancer admitted 03/05 with near syncope and melena. She had been started on zofran and dexamethasone 01/25/19 for refractory nausea and weight loss, but no NSAID. Her breast ca was treated with remote mastectomy and Taxol, but she developed leptomeningeal disease in 12/2018 and required XRT. Her BP on admission was 70/x and her hct dropped from 37 to 27. She was transfused and recovered well. * GIB- EGD revealed clean based ulcers of uncertain etiology and biopsies are pending. Diet advanced, remains on PPI * hypotension 2/ GIB- resolved. She was given hydrocortisone as well in case of relative adrenal insufficiency (on dex)with equivocal effect so would taper this rapidly. * OK for floor Subjective: stable overnight. Denies pain, N/V Objective: Vital Signs Temp Pulse Resp BP Pulse Ox 36.4 C 70 18 92/63 L 98 03/06/19 15:13 03/06/19 15:13 03/06/19 15:13 03/06/19 15:13 03/06/19 15:13 Laboratory Results 03/05/19 06:01 03/05/19 06:01 03/05/19 03/06/19 03/07/19 05:59 05:59 05:59 Intake Total 2689 2586 350 Output Total 0 Balance 2689 2586 350 PT 14.3 SEC (12.0-15.0) 03/04/19 16:33 INR 1.16 (0.83-1.16) 03/04/19 16:33 Physical Exam - Physical Exam General Appearance: alert, no apparent distress, thin EENT: PERRL/EOMI Neck: supple Respiratory: lungs clear, normal breath sounds, No respiratory distress, No accessory muscle use Cardiac/Chest: regular rate, rhythm, No edema, No JVD Abdomen: non-tender, soft, No distended, No guarding, No mass Skin: normal color, warm/dry, No cyanosis Lymphatic: no adenopathy Extremities: No pedal edema Neuro/Psych: alert, normal mood/affect, oriented x 3 ICD10 Worksheet Patient Problems: Problems Problem Status Onset Upper GI bleeding Acute Breast cancer Acute
[2019-03-07] MEDS: HYDROCORTISONE 100 MG/2 ML VIAL IVP SCH (05:14)
[2019-03-07] MEDS: PANTOPRAZOLE SODIUM 40 MG VIAL IVP SCH (05:15)
[2019-03-07 05:29] LABS: PLATELET COUNT 114 10^3/uL (150-400)
[2019-03-07] MEDS: NYSTATIN SUSP 500000 UNIT/5 ML UD LIQ PO SCH ×3 (08:31→21:18)
[2019-03-07] MEDS: DEXAMETHASONE 4 MG TAB PO SCH ×2 (08:31→21:18)
[2019-03-07] MEDS: FAMOTIDINE 20 MG TAB PO SCH (08:31)
--- NOTE | 2019-03-07 10:31 | HOSPPROG ---
Hospitalist Progress Note Assessment/Plan: 68 yo F w metastatic breast cancer here w UGIB, hemorrhagic shock shock: resolved ABLA: from UGIB change ppi to bid, po iron studies not s/o fe deficiency hypotension: has been on steroids not tachy chronic issue alert follow breast CA; advanced oncology following biopsy of stomach pending dispo: inpt per pt, can go home w home care encouraged her to work w PT Subjective: case d/w dr lozano. alert. brown stool Objective: Vital Signs Temp Pulse Resp BP Pulse Ox 36.7 C 76 14 90/61 L 95 03/07/19 08:37 03/07/19 08:37 03/07/19 04:59 03/07/19 08:37 03/07/19 08:37 Laboratory Results 03/07/19 05:15 03/07/19 05:15 03/06/19 03/07/19 03/08/19 05:59 05:59 05:59 Intake Total 2586 750 Output Total 0 Balance 2586 750 PT 14.3 SEC (12.0-15.0) 03/04/19 16:33 INR 1.16 (0.83-1.16) 03/04/19 16:33 - Physical Exam Constitutional: no apparent distress, appears nourished Eyes: PERRL, anicteric sclera Ears, Nose, Mouth, Throat: moist mucous membranes, hearing normal Cardiovascular: regular rate and rhythym, no murmur, rub, or gallop Respiratory: no respiratory distress, no rales or rhonchi Gastrointestinal: normoactive bowel sounds, soft, non-tender abdomen Genitourinary: no bladder fullness, No balderrama in urethra Skin: warm, normal color Musculoskeletal: full muscle strength Neurologic: AAOx3 ICD10 Worksheet Patient Problems: Problems Problem Status Onset Upper GI bleeding Acute Breast cancer Acute
--- NOTE | 2019-03-07 11:25 | SOAPPROG ---
SOAP Progress Note Assessment/Plan: Assessment: 1. Triple negative breast cancer, mets to bone 2. Leptomeningeal carcinomatosis - s/p RT in January 3. Gastric ulcers. DDx includes steroid induced; metastatic deposits; other Overall improving. hgb coming up., Plan: - d/c tomorrow if hgb stable - f/u with me in clinic this coming Friday as previously scheduled - await gastric biopsy results 25 min spent w/ pt and in coordination of care. 03/07/19 11:24 Subjective: feeling better today. eating a bit more. Objective: exam unchanged Vital Signs Temp Pulse Resp BP Pulse Ox 36.7 C 76 14 90/61 L 95 03/07/19 08:37 03/07/19 08:37 03/07/19 04:59 03/07/19 08:37 03/07/19 08:37 Laboratory Results 03/07/19 05:15 03/07/19 05:15 03/06/19 03/07/19 03/08/19 05:59 05:59 05:59 Intake Total 2586 750 Output Total 0 Balance 2586 750 PT 14.3 SEC (12.0-15.0) 03/04/19 16:33 INR 1.16 (0.83-1.16) 03/04/19 16:33 ICD10 Worksheet Patient Problems: Problems Problem Status Onset Upper GI bleeding Acute Breast cancer Acute
--- NOTE | 2019-03-07 16:21 | ASMTCMCOM ---
CM Note CM Note Notes: Patient discussed in clinical rounds, likely to discharge in a few days, possibly with Home Health PT. CM met with patient, her family was not present. We discussed options for Home Health, the patient states she does not have a preference, like the thought of referral to [facility]. CM placed referral. CM to follow. D/C Plan: Home Health Date Signed: 03/07/2019 04:21 PM Electronically Signed By:Argenis Sanchez
[2019-03-07] MEDS: PANTOPRAZOLE SODIUM 40 MG TAB PO SCH (21:18)
[2019-03-08 04:50] LABS: PLATELET COUNT 114 10^3/uL (150-400)
[2019-03-08] MEDS: NYSTATIN SUSP 500000 UNIT/5 ML UD LIQ PO SCH ×2 (08:55→16:28)
[2019-03-08] MEDS: PANTOPRAZOLE SODIUM 40 MG TAB PO SCH (08:55)
[2019-03-08] MEDS: DEXAMETHASONE 4 MG TAB PO SCH (08:55)
[2019-03-08] MEDS: FAMOTIDINE 20 MG TAB PO SCH (08:55)
[2019-03-08 11:06] VITALS: BP 86/62
--- NOTE | 2019-03-08 14:51 | SOAPPROG ---
EMERALD Progress Note Assessment/Plan: E&M breast cancer * Triple negative breast cancer, mets to bone: Clinically she is stable and there is no contraindication from an oncological standpoint to her going home. She is to follow-up tomorrow with Dr. Godfrey to review the path from the recent gastric biopsy. * Leptomeningeal carcinomatosis - s/p RT in January: This was thought to be the cause of some of her chronic nausea and has been treated without significant improvement yet. She is to follow-up with Dr. Godfrey. * Gastric ulcers. DDx includes steroid induced; metastatic deposits; other. See above * Anemia: Her blood counts are staying stable and there is no clinical signs of bleeding. Her iron levels are also normal. This will continue to be followed in the outpatient setting. Subjective: Generally she is feeling well without new complaints. She had mild cramping after eating but no blood in her stools or acute diarrhea. Objective: Vital Signs Temp Pulse Resp BP Pulse Ox 36.9 C 82 16 86/62 L 97 03/08/19 07:16 03/08/19 11:06 03/08/19 11:06 03/08/19 11:06 03/08/19 11:06 Laboratory Results 03/08/19 11:15 03/08/19 04:20 03/07/19 03/08/19 03/09/19 05:59 05:59 05:59 Intake Total 750 130 Balance 750 130 PT 14.3 SEC (12.0-15.0) 03/04/19 16:33 INR 1.16 (0.83-1.16) 03/04/19 16:33 Laboratory Tests 03/06/19 12:10 Iron Saturation 41 Ferritin 171.0 Physical Exam - Physical Exam General Appearance: no apparent distress Respiratory: lungs clear Cardiac/Chest: regular rate, rhythm Abdomen: normal bowel sounds, non-tender, soft ICD10 Worksheet Patient Problems: Problems Problem Status Onset Upper GI bleeding Acute Breast cancer Acute
--- NOTE | 2019-03-08 16:06 | HOSPPROG ---
Hospitalist Progress Note Assessment/Plan: 68 yo F w metastatic breast cancer here w UGIB, hemorrhagic shock shock: resolved ABLA: from UGIB change ppi to bid, po iron studies not s/o fe deficiency hypotension: has been on steroids not tachy chronic issue alert follow breast CA; advanced oncology following biopsy of stomach pending dispo: home today w HC > 30 minutes on dc Subjective: hct stable Objective: Vital Signs Temp Pulse Resp BP Pulse Ox 36.9 C 82 16 86/62 L 97 03/08/19 07:16 03/08/19 11:06 03/08/19 11:06 03/08/19 11:06 03/08/19 11:06 Laboratory Results 03/08/19 11:15 03/08/19 04:20 03/07/19 03/08/19 03/09/19 05:59 05:59 05:59 Intake Total 750 130 Balance 750 130 PT 14.3 SEC (12.0-15.0) 03/04/19 16:33 INR 1.16 (0.83-1.16) 03/04/19 16:33 - Physical Exam Constitutional: no apparent distress, appears nourished Eyes: PERRL, anicteric sclera Ears, Nose, Mouth, Throat: moist mucous membranes, hearing normal Cardiovascular: regular rate and rhythym, no murmur, rub, or gallop Respiratory: no respiratory distress Gastrointestinal: normoactive bowel sounds Genitourinary: No balderrama in urethra Skin: warm Musculoskeletal: full muscle strength Neurologic: AAOx3 ICD10 Worksheet Patient Problems: Problems Problem Status Onset Upper GI bleeding Acute Breast cancer Acute
--- NOTE | 2019-03-08 16:07 | PDIAF ---
- Diagnosis Diagnosis: UGIB Code Status: Full Code - Medication Management Discharge Medications: electronically signed and located in the Home Medication List. - Orders Services needed: Home Care, Registered Nurse, Physical Therapy, Occupational Therapy Home Care Face to Face: I certify that this patient was under my care and that I had the required [id number] encounter meeting the encounter requirements on the discharge day. My findings support the fact that the patient is homebound as defined in Home Care Face to Face Continued: CMS Chapter 7 Medicare Benefits Manual 30.1.1 , The condition of the patient is such that there exists a normal inability to leave home and consequently, leaving home would require a considerable and taxing effort. - Follow Up Care Current Providers and Referrals: GRISELDA SORENSEN [Other] - As per Instructions
--- NOTE | 2019-03-08 16:13 | ASMTCMCOM ---
CM Note CM Note Notes: Patient plan of care reviewed in am rounds. Patient is likely to discharge if blood work stable. Will require HHC at discharge. Referral in alscripts, awaiting confirmation of services, then physician dc order. CM available should other needs arise. Plan: Home with HHC. Date Signed: 03/08/2019 04:12 PM Electronically Signed By:Jona Pitts RN
--- NOTE | 2019-03-08 17:06 | ASMTCMCOM ---
CM Note CM Note Notes: Met with patient who is receptive to [facility]. She has [employer] Medicare and searching for [facility] company that deals with this insurance. Spoke with patient, she will discharge and CM to follow up in am. Plan: Dc to home. Date Signed: 03/08/2019 05:05 PM Electronically Signed By:Joan Pitts RN
--- NOTE | 2019-03-08 21:38 | GDS ---
[f rep st] DISCHARGE SUMMARY DISCHARGE DIAGNOSES: 1. Metastatic breast cancer. 2. Upper gastrointestinal bleed from gastric ulcers. 3. Acute blood loss anemia. Please see admission history and physical by Dr. Leonard Juarez. The patient presented with sympto matic anemia, having recently passed melena. She is on steroids, a dose of dexamethasone 4 twice demetria ly. She underwent upper endoscopy which showed gastric ulcers without clear active bleeding. There was also erythematous mucosa. These were biopsied. At this point in time, the path of those is stil l pending. She received a total of 1 unit of packed red cells. She was not iron deficient upon iron studies. She appeared to stop bleeding. She was seen by Physical and Occupational Therapy who felt she was safe for home with home care. She was discharged home on a b.i.d. PPI. She takes an H2 blo cker already, advised to take no NSAIDs, and she was continued on her dexamethasone. She has outpati ent followup with Dr. Godfrey tomorrow. /[id number]/MODL
--- NOTE | 2019-03-09 08:41 | ASMTLACE ---
[place] Length of stay for Answers: 4-6 days current admission Acuity / Level of Answers: Yes Care: Did the patient have an inpatient admission? Comorbidities - select Answers: Any tumor (including all that apply lymphoma or leukemia) Opioid dependence / Chronic pain # of Emergency department Answers: 1-2 visits in the last 6 months Social determinants Answers: Mental health diagnosis (anxiety, depression, pers onality disorders, etc.) Score: 17 Date Signed: 03/09/2019 08:39 AM Electronically Signed By:Joan Pitts RN
--- NOTE | 2019-03-09 14:35 | ASDISCHSUM ---
Discharge Information Plan Status:Home with Home Health Medically Cleared to Leave:03/08/2019 Discharge Date:03/08/2019 05:37 PM D/C Disposition:Home, Routine, Self-Care ADT D/C Disposition:Home, Routine, Self-Care Projected Discharge Date:03/08/2019 11:00 AM Transportation at D/C: Discharge Delay Reason: Follow-Up Date:03/08/2019 11:00 AM Discharge Slot: Final Diagnosis: Placement Information Referral Type:*Home Health Care Services Referral ID:[id number] Provider Name:[facility] [place] ([facility]) Address 1:[address] [place] [address] Address 2: City:[place] Selection Factors: State:[place] Patient Contact Information Contact Name:DANYELLAI Relationship:Daughter Address: City: [facility] Phone: State/Zip Code: Email: Financial Information Financial Class:Medicare Advantage Plans Primary Plan Desc:[employer] MEDICARE Primary Plan Number:[id number] Secondary Plan Desc: Secondary Plan Number: Assessment Information LACE LACE Length of stay for Answers: 4-6 days current admission Acuity / Level of Answers: Yes Care: Did the patient have an inpatient admission? Comorbidities - select Answers: Any tumor (including all that apply lymphoma or leukemia) Opioid dependence / Chronic pain # of Emergency department Answers: 1-2 visits in the last 6 months Social determinants Answers: Mental health diagnosis (anxiety, depression, pers onality disorders, etc.) Score: 17 Date Signed: 03/09/2019 08:39 AM Electronically Signed By:Joan Pitts RN [facility] Progress Note CM Note CM Note Notes: CM met with daughter. Pt was away out of room for testing. Daughter reports that pt lives with her at home. is out of town care taking for his blind/deaf uncle. Therapy's recommend HHC. CM will follow up when pt is back in room to provide options for HHC. Plan: [facility] Date Signed: 03/05/2019 02:31 PM Electronically Signed By:Priyanka Claudio [facility] CM Progress Note CM Note CM Note Notes: Patient discussed in clinical rounds, likely to discharge in a few days, possibly with Home Health PT. CM met with patient, her family was not present. We discussed options for Home Health, the patient states she does not have a preference, like the thought of referral to [facility]. CM placed referral. CM to follow. D/C Plan: Home Health Date Signed: 03/07/2019 04:21 PM Electronically Signed By:Argenis Sanchez [facility] CM Progress Note CM Note CM Note Notes: Patient plan of care reviewed in am rounds. Patient is likely to discharge if blood work stable. Will require HHC at discharge. Referral in alscripts, awaiting confirmation of services, then physician dc order. CM available should other needs arise. Plan: Home with [facility]. Date Signed: 03/08/2019 04:12 PM Electronically Signed By:Joan Pitts RN [facility] CM Progress Note CM Note CM Note Notes: Met with patient who is receptive to [facility]. She has [employer] Medicare and searching for [facility] company that deals with this insurance. Spoke with patient, she will discharge and CM to follow up in am. Plan: Dc to home. Date Signed: 03/08/2019 05:05 PM Electronically Signed By:Joan Pitts RN Intervention Information
--- NOTE | 2019-03-11 12:08 | PQFORM ---
PHYSICIAN QUERY FORM Needs Your Response This query form is being sent to you to assure this patient record is coded properly. Please respond to the question below: GRAIN ELEVATOR WORKER QUESTION: Dr Barbour The Pathology report is available for this patients biopsies. After review - do you agree with the Pathologists diagnosis of Metastatic gastric carcinoma? _X_ Yes __ No __ Other (Please Specify ) __ Unable to determine Thank You Dary CORREA Insurance Sales Professional INSTRUCTIONS FOR RESPONSE: Answer question by clicking on the "Edit Document" button. Move cursor to area below the stars. When complete, hit "Save." Click on the "Sign" button, then click "Sign" again. Type in your PIN and hit "Enter." MTDD
--- NOTE | 2019-03-11 12:10 | PQFORM ---
PHYSICIAN QUERY FORM Needs Your Response This query form is being sent to you to assure this patient record is coded properly. Please respond to the question below: HEMODIALYSIS PATIENT CARE SPECIALIST QUESTION: Dr Km Bellamy documented Severe Protein Calorie Malnutrition in the Progress Notes however this diagnosis was not mentioned in the Discharge Summary. Do you agree with the Diagnosis of Severe Protein Calorie Malnutrition? _X_ Yes __ No __ Other (Please Specify ____) __ Unable to Determine Thank You Dary CORREA Medical Billing Instructor INSTRUCTIONS FOR RESPONSE: Answer question by clicking on the "Edit Document" button. Move cursor to area below the stars. When complete, hit "Save." Click on the "Sign" button, then click "Sign" again. Type in your PIN and hit "Enter." MTDD
== END 2019-03-08 17:37 | disposition home or self-care (01) | DRG 374 ==
LOC: F2N 17:13 → F1N 03-06 14:04
PROVIDERS: ADMIT Family Medicine; ATTEND Internal Medicine
PROC: 30233N1 Transfusion of Nonautologous Red Blood Cells into Peripheral Vein, Percutaneous Approach (ICD-10-PCS; 2019-03-04)
PROC: 0DB68ZX Excision of Stomach, Via Natural or Artificial Opening Endoscopic, Diagnostic (ICD-10-PCS; principal; 2019-03-05 13:45)
DX: C78.89 Secondary malignant neoplasm of other digestive organs (principal); K25.4 Chronic or unspecified gastric ulcer with hemorrhage; D62 Acute posthemorrhagic anemia; E43 Unspecified severe protein-calorie malnutrition; D61.818 Other pancytopenia; I95.9 Hypotension, unspecified; C79.31 Secondary malignant neoplasm of brain; Z85.3 Personal history of malignant neoplasm of breast; Z79.52 Long term (current) use of systemic steroids; Z92.3 Personal history of irradiation
CPT/HCPCS: 82435-PO; 82565-PO; 82947-PO; 84132-PO; 84295-PO; 84520-PO; 85014-ER; 96374; 97110-GP; 97116-GP; 97161-GP; J1642; J1720; P9016

== ENCOUNTER 2019-04-05 17:35 | Inpatient (IN) | payer OTHER | END 2019-04-10 15:18 | LOC: F1N 17:35 ==